=== PATIENT | female | born 1995 | race African-American/Black ===

== ENCOUNTER 2019-12-25 06:47 | Emergency (ER) | payer OTHER ==
[~2019-12-25] VITALS: Ht 180.3 cm; Wt 114.4 kg
[2019-12-25 06:52] VITALS: BP 115/64
[2019-12-25] MEDS ORDERED: ALBUTEROL INHALER (07:00)
[2019-12-25] MEDS ORDERED: ACETAMINOPHEN WITH CODEINE 300/30MG TABLET PO ONE (07:30)
== END 2019-12-25 08:06 | disposition home or self-care (01) ==
LOC: ER 06:47
DX: R07.89 Other chest pain (principal); M79.652 Pain in left thigh; J45.909 Unspecified asthma, uncomplicated
CPT/HCPCS: 71045; 81025; 99283